=== PATIENT | female | born 1990 | race Caucasian/White ===

== ENCOUNTER 2023-04-23 16:36 | Observation (INO) | payer SELFPAY ==
[~2023-04-23] VITALS: Ht 165.1 cm; Wt 72.7 kg
[2023-04-23] MEDS ORDERED: NS 1,000 ML IV ONE (19:15)
[2023-04-23 19:54] LABS: ALBUMIN 4.1 gm/dL (3.5-5.0); BILIRUBIN,TOTAL 0.2 mg/dL (0.2-1.2); CALCIUM 9.6 mg/dL (8.4-10.2); CREATININE, serum 0.79 mg/dL (0.57-1.11); POTASSIUM 4.2 mmol/L (3.5-4.5); TOTAL PROTEIN 6.9 gm/dL (6.2-8.1)
[2023-04-23 20:26] LABS: BASO % 0.4 % (0.0-2.0); EOS # 0.1 K/mm3 (0.0-0.7); EOS % 1.3 % (0.0-4.0); GRAN # 2.9 K/mm3 (1.4-6.5); GRAN % 64.8 % (42.2-75.2); LYMPH # 1.2 K/mm3 (1.2-3.4); LYMPH % 26.6 % (20.0-51.0); MEAN CELL VOLUME 74 fl (80.0-100.0); MEAN CORPUSCULAR HGB CONC 30 g/dl (33.0-37.0); MEAN PLATELET VOLUME 10.4 fl (7.4-10.4); MONO # 0.3 K/mm3 (0.1-0.6); MONO % 6.7 % (1.7-9.3); PLATELET COUNT 183 K/mm3 (130-400); RED BLOOD COUNT 2.18 M/mm3 (4.10-5.30); REDCELL DISTRIBUTION WIDTH-CV 15.9 % (11.5-14.5)
[2023-04-23 20:31] LABS: HEMATOCRIT 16.2 % (37.0-47.0); HEMOGLOBIN 4.9 g/dl (12.5-16.0); MEAN CORPUSCULAR HEMOGLOBIN 22 pg (27-31)
[2023-04-23 20:41] LABS: PH 7.5 (5.0-8.5); URINE APPEARANCE CLEAR (CLEAR/HAZY); URINE BLOOD 3+ (NEGATIVE); URINE GLUCOSE NEGATIVE (NEGATIVE); URINE KETONE NEGATIVE (NEGATIVE); URINE NITRATE POSITIVE (NEGATIVE); URINE PROTEIN(semi-quant) NEGATIVE (NEGATIVE); URINE UROBILINOGEN 0.2 E.U/dL (0.2-1.0)
[2023-04-23 20:57] LABS: URINE COLOR DARK YELLOW (YELLOW)
[2023-04-23 21:14] LABS: COLLECTION METHOD CLEAN CATCH
[2023-04-23] MEDS ORDERED: Iohexol 300 - 100 ML VIAL IV ONE (21:40)
[2023-04-23] MEDS ORDERED: NS 50 ML IV ONE (21:40)
[2023-04-23 22:15] VITALS: BP 123/76; PULSE 103; TEMP 98.4
--- NOTE | 2023-04-23 22:15 | NUR ---
To unit via cart from ED, accompanied by significant other. Pt and significant other speak less than minimal [place], Polish being their primary language. Interpretor machine used for consent.
[2023-04-23] MEDS ORDERED: NS 250 ML IV ONE (22:40)
[2023-04-23] MEDS ORDERED: Acetaminophen 325 MG TAB PO PRN (22:45)
[2023-04-23] MEDS ORDERED: Morphine 4 MG/ML VIAL IV PRN (22:45)
[2023-04-23] MEDS ORDERED: Ondansetron 4 MG/2 ML VIAL IV PRN (22:45)
[2023-04-23] MEDS ORDERED: NS 1,000 ML IV SCH (22:45)
[2023-04-23 22:58] VITALS: BP 120/72; PULSE 98; TEMP 98.7
--- NOTE | 2023-04-23 23:00 | NUR ---
1st unit PRBC's started to [facility] site after consent obtained. Statistical Technician used. Pt and significant other verbalize understanding. Questions invited and answered.
[2023-04-23 23:14] VITALS: BP 121/79; PULSE 109; TEMP 98.3
[2023-04-24] VITALS (10 sets, daily range): BP systolic 81–117; BP diastolic 39–68; PULSE 82–115; TEMP 98.2–99.7
--- NOTE | 2023-04-24 01:30 | NUR ---
2nd unit of blood started.
--- NOTE | 2023-04-24 01:45 | NUR ---
When asked about pain pt points to her head, then her arm at IV insertion site. Financial Service Rep used to help differentiate pain sources. pt reports headache for 1 hour, pain level 6 out of 10. IV site tells associate financial representative "it's uncomfortable" when asked if she the IV site restarted she replied yes.
--- NOTE | 2023-04-24 02:00 | NUR ---
Pt assessed for new IV site by RN's x 2. Veins small "spidery" . Pt declines new IV site at this time. LAC IV site with no redness or swelling, flushes well.
--- NOTE | 2023-04-24 04:15 | NUR ---
Up to bathroom with steady gait, voids tea colored urine. peripad with 1x3 cm area of blood, no clots, no free flow noted with voiding.
--- NOTE | 2023-04-24 07:00 | NUR ---
PT RESTING IN BED, IVF'S INFUSING PER ORDERS TO LEFT AC, NO S/S OF COMPLICATIONS. PT'S SIGNIFICANT OTHER AT BEDSIDE, INDICATES PT USED BATHROOM RECENTLY. 500 ML OF BLOODY URINE IN HAT WITH 3 GOLF BALL SIZE CLOTS. NO FURTHER NEEDS REPORTED. CALL LIGHT IN REACH.
[2023-04-24 08:10] LABS: HEMATOCRIT 22.3 % (37.0-47.0); HEMOGLOBIN 7.1 g/dl (12.5-16.0)
[2023-04-24] MEDS ORDERED: Tranexamic Acid 650 MG TAB PO SCH (09:00)
[2023-04-24] MEDS ORDERED: Nitrofurantoin (Mono/Macro) 100 MG CAP PO SCH (09:00)
[2023-04-24] MEDS ORDERED: Sennosides/Docusate 8.6-50 MG TAB PO SCH (09:03)
[2023-04-24] MEDS ORDERED: LYSTEDA650 MG PO (10:16)
[2023-04-24] MEDS ORDERED: MACROBID 1100 MG/CAP PO (10:16)
--- NOTE | 2023-04-24 12:09 | NUR ---
DISCHARGE INSTRUCTIONS REVIEWED WITH PT USING NOCTURNIST TABLET. PT'S PARTNER USING PEN TO MAKE NOTES ON PAPERWORK WHILE DISCUSSING PLAN. QUESTIONS INVITED AND ANSWERED. PT AND PARTNER VERBALIZE UNDERSTANDING. IV DISCONTINUED FOLLOWING IRON INFUSION PER ORDERS. ONE DOSE OF MACROBID GIVEN TO PT TO TAKE IN A COUPLE OF HOURS PER DOCTOR ORDER, IN CASE PHARMACY DOES NOT HAVE IT AVAILABLE TODAY. AGAIN PT AND PARTNER VERBALIZE UNDERSTANDING.
--- NOTE | 2023-04-24 12:23 | NUR ---
PT DISCHARGED HOME, AMBULATES OUT OF FACILITY ACCOMPANIED BY PARTNER.
== END 2023-04-24 12:20 | disposition home or self-care (01) ==
LOC: COL.ER 16:36 → OB 20:45
PROVIDERS: Nurse Practitioner; ADMIT Obstetrics & Gynecology
DX: N92.1 Excessive and frequent menstruation with irregular cycle (principal); D62 Acute posthemorrhagic anemia; R42 Dizziness and giddiness; D64.9 Anemia, unspecified; N85.8 Other specified noninflammatory disorders of uterus
CPT/HCPCS: G0378; J1756; J2270; J7030; J7050; P9016; Q9967